=== PATIENT | female | born 1965 | race Caucasian/White ===

== ENCOUNTER → 2016-07-18 | Outpatient (CLI) | payer OTHER ==
[~2016-07-18] MED LIST: ALBUAER19 INH; CHOL100010 PO; SERT25TA PO
== END | disposition home or self-care (01) ==
LOC: C.PAPS 13:23
PROVIDERS: ATTEND Obstetrics & Gynecology
DX: Z01.419 Encounter for gynecological examination (general) (routine) without abnormal findings (principal)

== ENCOUNTER → 2016-09-21 | Day surgery (SDC) | payer OTHER | END | disposition home or self-care (01) | LOC: C.ACU 15:16 | PROVIDERS: ATTEND Urology | DX: Z93.6 Other artificial openings of urinary tract status (principal) ==

== ENCOUNTER → 2017-02-14 | Outpatient (CLI) | payer OTHER ==
[~2017-02-14] MED LIST changes: +OXYC-90 PO; +VNTHFA/IN INH
--- NOTE | 2017-02-15 14:58 | MAMMOGRAPHY REPORT ---
BILATERAL DIGITAL SCREENING MAMMOGRAM TOMOSYNTHESIS WITH CAD: 02/14/2017 CLINICAL HISTORY: Routine screening examination. TECHNIQUE: Breast tomosynthesis in addition to standard 2D mammography was performed. Current study was also evaluated with a Computer Aided Detection (CAD) system. COMPARISON: Comparison is made to exams dated: 02/11/2016 mammogram, 02/09/2015 mammogram, 4 mammogram - [facility], 05/19/2011 mammogram, 11/23/2009 mammogram - [facility], and 11/13/2007. BREAST COMPOSITION: There are scattered areas of fibroglandular density in both breasts. FINDINGS: The parenchymal pattern is unchanged. No developing mass, architectural distortion or clus ter of suspicious microcalcifications is seen in either breast. IMPRESSION: ACR BI-RADS CATEGORY 2: BENIGN There is no mammographic evidence of malignancy. A 1 year screening mammogram is recommended. The pa tient will receive written notification of the results. Approximately 10% of breast cancers are not detected with mammography. A negative mammographic report should not delay biopsy if a clinically suggestive mass is present. Michelle Gonzalez M.D. ay/:02/14/2017 15:28:19 Foot Orthopedist: Ghazal HOFFMAN(Darnell)(Bianca), [facility] letter sent: Normal /2 BI-RADS Code: ACR BI-RADS Category 2: Benign
== END | disposition home or self-care (01) ==
LOC: C.MAMM 08:31
PROVIDERS: ATTEND Family Medicine
DX: Z12.31 Encounter for screening mammogram for malignant neoplasm of breast (principal)

== ENCOUNTER → 2017-03-21 | Outpatient (CLI) | payer OTHER ==
[~2017-03-21] MED LIST changes: -OXYC-90 PO; -VNTHFA/IN INH
[2017-03-21 13:17] LABS: ALBUMIN 3.7 gm/dl (3.4-5.0); ALT/SGPT 35 U/L (12-78); AST/SGOT 19 U/L (15-37); BLOOD UREA NITROGEN 14 mg/dl (7-18); CALCIUM 8.7 mg/dl (8.5-10.1); CARBON DIOXIDE 30 mmol/L (21-32); CREATININE 0.77 mg/dl (0.60-1.20); GLUCOSE 87 mg/dl (70-99); POTASSIUM 4.2 mmol/L (3.5-5.1); SODIUM 139 mmol/L (136-145)
[2017-03-21 13:27] LABS: ALKALINE PHOSPHATASE 68 U/L (45-117); CHOLESTEROL 247 mg/dl (0-200); LDL CHOLESTEROL CALCULATED 179 mg/dl
== END | disposition home or self-care (01) ==
LOC: C.LABPVFM 08:28
PROVIDERS: ATTEND Nurse Practitioner Family
DX: E78.1 Pure hyperglyceridemia (principal)

== ENCOUNTER → 2017-05-03 | Day surgery (SDC) | payer OTHER ==
[2017-04-20 12:11] VITALS: BMI 24.0
[~2017-05-03] VITALS: Ht 160 cm; Wt 63.6 kg
[~2017-05-03] MED LIST changes: -ALBUAER19 INH; -CHOL100010 PO; +LIDOCAINE HCL 2% 2 ML VIAL (20MG/ML) ONE; +MIDAZOLAM HCL 1 MG/ML 2ML VIAL ONE; +ONDANSETRON INJ 2 MG/ML 2 ML VIAL ONE; +PROPOFOL IV EMULSION 10 MG/ML 20 ML VIAL IV ONE; -SERT25TA PO; +SODIUM CHLORIDE 0.9% 500ML 500 ML IV ONE; +VNTHFA/IN INH
[2017-05-03 13:12] VITALS: BMI 24.0
[2017-05-03 13:25] VITALS: TEMP 36.5
--- NOTE | 2017-05-03 13:25 | Endo History and Physical ---
History & Physical Date of Service: May 03, 2017. Chief Complaint: HX POLYP, 3 YR FOLLOW UP. Referring Physician: GENNARO SALEH History of Present Illness 51 yo CF who presents for colonoscopy secondary to history of colon polyps. Past Medical History Asthma, Depression Past Surgical History Hx Cardiac Surgery: No Hx Internal Defibrillator: No Hx Pacemaker: No Hx Abdominal Surgery: Yes (BIJAN BSO) Hx of Implantable Prosthesis: No Hx Post-Op Nausea and Vomiting: No Hx Cancer Surgery: No Hx Thoracic Surgery: No Hx Orthopedic: Yes (LEFT SHOULDER ARTHROSCOPY) Hx Urinary Tract Surgery: Yes (BLADDER REMOVAL AND UROSTOMY; PELVIC TUMORS ( BENIGN)) Family History Colon CA, Polyp, IBD Social History Smoking Status: Former Smoker Hx Substance Use: No Hx Alcohol Use: Yes (A FEW GLASSES OF WINE/MONTH) Allergies Coded Allergies: BEE STING (Verified Allergy, Severe, THROAT SWELLING, 05/03/17) No Known Allergies (Verified , 05/03/17) Current Medications Reported Home Medications Medications Dose Route/Sig Max Daily Dose Days Date Category Ventolin Hfa (Albuterol) 200 Puffs/60985 Mcg Aers 2 Puffs INH Q4H 04/20/17 Reported Vital Signs Weight (Kilograms): 63.64 Height (Feet): 5 Height (Inches): 3 Physical Exam General Appearance: WD/WN, no apparent distress Respiratory/Chest: Auscultation: breath sounds normal Cardiovascular: Heart Auscultation: RRR Abdomen: Bowel Sounds: normal Inspection & Palpation: soft, non-distended, no tenderness, guarding & rebound Assessment and Plan Assessment: 51 yo CF who presents for colonoscopy secondary to history of colon polyps. Plan: Proceed with colonoscopy.
[2017-05-03 13:26] VITALS: Ht 160 cm; Wt 63.6 kg
--- NOTE | 2017-05-03 14:47 | GI REPORT ---
Procedure Date: 05/03/2017 2:16 PM Procedure: Colonoscopy Indications: High risk colon cancer surveillance: Personal history of colonic polyps Medicines: Monitored Anesthesia Care Complications: No immediate complications. Estimated Blood Loss: Estimated blood loss: none. Procedure: Pre-Anesthesia Assessment: - Prior to the procedure, a History and Physical was performed, and patient medications and allergies were reviewed. The patient's tolerance of previous anesthesia was also reviewed. The risks and benefits of the procedure and the sedation options and risks were discussed with the patient. All questions were answered, and informed consent was obtained. Prior Anticoagulants: The patient has taken no previous anticoagulant or antiplatelet agents. ASA Grade Assessment: II - A patient with mild systemic disease. After reviewing the risks and benefits, the patient was deemed in satisfactory condition to undergo the procedure. After I obtained informed consent, the scope was passed under direct vision. Throughout the procedure, the patient's blood pressure, pulse, and oxygen saturations were monitored continuously. The scope was introduced through the anus and advanced to the terminal ileum. The colonoscopy was performed without difficulty. The patient tolerated the procedure well. The quality of the bowel preparation was good. The terminal ileum, ileocecal valve, appendiceal orifice, and rectum were photographed. Findings: The perianal and digital rectal examinations were normal. A 6 mm polyp was found in the ascending colon. The polyp was sessile. The polyp was removed with a hot snare. Resection and retrieval were complete. Multiple small-mouthed diverticula were found in the sigmoid colon. Non-bleeding internal hemorrhoids were found during retroflexion. The hemorrhoids were small. Impression: - One 6 mm polyp in the ascending colon, removed with a hot snare. Resected and retrieved. - Diverticulosis in the sigmoid colon. - Non-bleeding internal hemorrhoids. Recommendation: - Resume previous diet. - Continue present medications. - Repeat colonoscopy for surveillance based on pathology results. - Return to primary care physician as previously scheduled. Perry Mchugh, DO 05/03/2017 2:47:11 PM This report has been signed electronically. Note Initiated On: 05/03/2017 2:16 PM I attest to the content of the Intraoperative Record and orders documented therein, exceptions below
--- NOTE | 2017-05-03 14:51 | Discharge Instructions ---
Endoscopy Patient Instructions Date / Procedure(s) Performed May 03, 2017. Colonoscopy Allergy Information Coded Allergies: BEE STING (Verified Allergy, Severe, THROAT SWELLING, 05/03/17) No Known Allergies (Verified , 05/03/17) Discharge Date / Findings May 03, 2017. Colon polyp Diverticulosis Internal hemorrhoids Medication Instructions OK to resume all medications today as prescribed Reported Home Medications Medications Dose Route/Sig Max Daily Dose Days Date Category Ventolin Hfa (Albuterol) 200 Puffs/23839 Mcg Aers 2 Puffs INH Q4H 04/20/17 Reported Provider Instructions Activity Restrictions - No exercising or heavy lifting for 24 hours. - Do not drink alcohol the day of the procedure. - Do not drive a car or operate machinery until the day after the procedure. - Do not make any important decisions or sign important papers in 24 hours after the procedure. Following Day: - Return to full activity which may include returning to work/school. Diet Start your diet with liquids and light foods (jello, soup, juice, toast). Then eat your usual diet if not nauseated. Treatment For Common After Affects For mild abdominal pain, bloating, or excessive gas: - Rest - Eat lightly - Lie on right side Follow-Up Information Follow-up with TSERING SALEH as scheduled Anesthesia Information What You Should Know You have had a procedure that required some medicine to reduce anxiety and discomfort. This treatment is called moderate sedation. After receiving the treatment, you may be sleepy, but you will be able to breathe on your own. The effects of the treatment may last for several hours. Follow these instructions along with Activity/Diet recommendations noted above: * Do NOT do anything where dizziness or clumsiness would be dangerous. * Rest quietly at home today, then you can be up and about tomorrow. * Have a responsible person stay with you the rest of today. * You may have had an I.V. today. If so, you may take the dressing off later today. Recommendations Call your doctor if: * Trouble breathing * Continuous vomiting for more than 24 hours * Temperature above 101 degrees * Severe abdominal pain or bloating * Pain not relieved by pain medicine ordered * There is increased drainage or redness from any incision * A large amount of rectal bleeding greater than 2-3 tablespoons. (If you had a polyp/s removed or have hemorrhoids, a small amount of blood - from the rectum is to be expected.) * You have any unanswered questions or concerns. IN THE EVENT OF A SERIOUS EMERGENCY, GO TO THE NEAREST EMERGENCY ROOM Your discharge instructions were prepared by provider Perry Mchugh. Patient Instructions Signature Page [place] Patient (or Guardian) Signature/Date: I have read and understand the instructions given to me by my caregivers. Caregiver/RN/Doctor Signature/Date: The above-named patient and/or guardian has received patient instructions on this date. + Original Patient Signature Page (only) stays with chart. Please make copy for patient.
[2017-05-03 15:15] VITALS: BP 107/77; PULSE 63; O2SAT 98
--- NOTE | 2017-05-03 15:18 | Anesthesiology Progress Note ---
Anesthesia Post Op Note Date & Time May 03, 2017 at 15:18 Vital Signs Pain Intensity: 0 Vital Signs Past 12 Hours Date Time Temp Pulse Resp B/P (MAP) Pulse Ox O2 Delivery O2 Flow Rate FiO2 05/03/17 15:15 63 16 107/77 (87) 98 Room Air 05/03/17 15:00 59 16 113/69 (84) 98 Room Air 05/03/17 14:45 61 16 98/66 (77) 94 Room Air 05/03/17 13:25 36.5 54 18 125/66 (85) 97 Room Air Notes Mental Status: alert / awake / arousable, participated in evaluation Pt Amnestic to Procedure: Yes Nausea / Vomiting: adequately controlled Pain: adequately controlled Airway Patency, RR, SpO2: stable & adequate BP & HR: stable & adequate Hydration State: stable & adequate Anesthetic Complications: no major complications apparent
== END | disposition home or self-care (01) ==
LOC: C.GI 12:50
PROVIDERS: ATTEND Internal Medicine
DX: Z12.11 Encounter for screening for malignant neoplasm of colon (principal); D12.2 Benign neoplasm of ascending colon; K64.8 Other hemorrhoids; K57.30 Diverticulosis of large intestine without perforation or abscess without bleeding; Z90.710 Acquired absence of both cervix and uterus; Z90.722 Acquired absence of ovaries, bilateral; Z90.79 Acquired absence of other genital organ(s); Z87.891 Personal history of nicotine dependence; Z86.010 Personal history of colon polyps; Z91.030 Bee allergy status; Z80.0 Family history of malignant neoplasm of digestive organs